=== PATIENT | female | born 1965 | race Caucasian/White ===

== ENCOUNTER 2019-04-29 09:34 | Emergency (ER) | payer SELFPAY ==
[2019-04-29] MEDS ORDERED: Ketorolac 60 MG/2 ML SDV IM ONE (10:22)
[2019-04-29] MEDS ORDERED: diphenhydrAMINE 50 MG Cap PO ONE (10:23)
[2019-04-29] MEDS ORDERED: Acetaminophen 325 MG Tab PO ONE (10:23)
[2019-04-29] MEDS ORDERED: Metoclopramide 10 MG/2 ML SDV IVPUSH ONE (10:23)
[2019-04-29] MEDS ORDERED: Lisinopril 10 MG Tab PO ONE (10:24)
[2019-04-29] MEDS ORDERED: Metoclopramide 5 MG Tab PO ONE (10:36)
--- NOTE | 2019-04-29 10:38 | EDM.PDOC ---
<Cindy Garcia - Last Filed: 04/30/19 12:27> ED HPI GENERAL MEDICAL PROBLEM - General Chief Complaint: General Stated Complaint: NAUSEA Time Seen by Provider: 04/29/19 10:20 Source of Information: Reports: Patient History Limitations: Reports: No Limitations - History of Present Illness INITIAL COMMENTS - FREE TEXT/NARRATIVE: Chrissy is a 53 year old female who presents to the ED this morning with c/o migraine and nausea. The migraine started last night. Pt reports it started towards the back of her head but by this morning it had to moved to the front part of her head. The nausea started early this morning as soon as she woke up. She is currently homeless and living in her car with her significant other so has no been able to take anything for her migraine as money is tight and she does not have insurance. She normally takes naproxen for her migraines along with lisinopril for hypertension but has not taken either in a few days. She reports phonophobia and photophobia. She denies having any vomiting or an aura prior to the onset of her migraine. She also wears eye glasses but has not been to see an physicist acoustics in years. Her significant other believes this also might be one source of her constant headaches. Onset: Gradual Onset Date: 04/28/19 Duration: Hour(s):, Constant Location: Reports: Head Quality: Reports: Dull, Throbbing Severity: Moderate Improves with: Reports: Medication Worsens with: Reports: Other (light and sound ) Associated Symptoms: Reports: Nausea/Vomiting Headache Pain Score (Numeric/FACES): 10 - Related Data Allergies Allergy/AdvReac Type Severity Reaction Status Date / Time Penicillins Allergy Cannot Verified 04/29/19 09:55 Remember propoxyphene Allergy Hives Verified 04/29/19 09:55 [From Darvocet-N] Sulfa (Sulfonamide Allergy Hives Verified 04/29/19 09:55 Antibiotics) sulfamethoxazole Allergy Hives Verified 04/29/19 09:55 [From Bactrim] trimethoprim [From Bactrim] Allergy Hives Verified 04/29/19 09:55 Home Meds: Home Meds Lisinopril [Prinivil] 10 mg PO DAILY 04/29/19 [History] Past Medical History HEENT History: Reports: Impaired Vision Cardiovascular History: Reports: Hypertension Respiratory History: Reports: Sleep Apnea Gastrointestinal History: Reports: GERD Musculoskeletal History: Reports: Back Pain, Chronic Neurological History: Reports: Migraines - Past Surgical History Female Surgical History: Reports: Hysterectomy Social & Family History - Tobacco Use Smoking Status *Q: Never Smoker - Caffeine Use Caffeine Use: Reports: Soda - Recreational Drug Use Recreational Drug Use: No ED ROS GENERAL - Review of Systems Review Of Systems: See Below Constitutional: Reports: No Symptoms HEENT: Reports: Glasses Respiratory: Reports: No Symptoms Cardiovascular: Reports: No Symptoms Endocrine: Reports: No Symptoms GI/Abdominal: Reports: No Symptoms : Reports: No Symptoms Musculoskeletal: Reports: No Symptoms Skin: Reports: No Symptoms Neurological: Reports: Headache. Denies: Confusion, Dizziness Psychiatric: Reports: No Symptoms Hematologic/Lymphatic: Reports: No Symptoms ED EXAM, GENERAL - Physical Exam Exam: See Below Exam Limited By: No Limitations General Appearance: Alert, WD/WN, No Apparent Distress Head: Atraumatic, Normocephalic Respiratory/Chest: No Respiratory Distress, Lungs Clear, Normal Breath Sounds, No Accessory Muscle Use, Chest Non-Tender Cardiovascular: Normal Peripheral Pulses, Regular Rate, Rhythm, No Edema, No Gallop, No JVD, No Murmur, No Rub GI/Abdominal: Normal Bowel Sounds, Soft, Non-Tender, No Organomegaly, No Distention, No Abnormal Bruit, No Mass Extremities: Normal Inspection, Non-Tender, No Pedal Edema, Normal Capillary Refill Neurological: Alert, Oriented, CN II-XII Intact, Normal Cognition, No Motor/ Sensory Deficits Psychiatric: Normal Affect, Normal Mood, Tearful Skin Exam: Warm, Dry, Intact, Normal Color, No Rash Lymphatic: No Adenopathy Course - Vital Signs Last Recorded V/S: Last Vital Signs Temp 98.5 F 04/29/19 09:52 Pulse 92 04/29/19 09:52 Resp 18 04/29/19 09:52 BP 141/84 H 04/29/19 10:51 Pulse Ox 100 04/29/19 09:52 - Orders/Labs/Meds Meds: Medications Discontinued Medications Generic Name Dose Route Start Last Admin Trade Name Freq PRN Reason Stop Dose Admin Acetaminophen 975 mg 04/29/19 10:23 04/29/19 10:51 Tylenol PO 04/29/19 10:24 975 mg NOW ONE Administration Diphenhydramine HCl 50 mg 04/29/19 10:23 04/29/19 10:50 Benadryl PO 04/29/19 10:24 50 mg ONETIME ONE Administration Ketorolac Tromethamine 60 mg 04/29/19 10:22 04/29/19 10:52 Toradol IM 04/29/19 10:23 60 mg ONETIME ONE Administration Lisinopril 10 mg 04/30/19 10:24 Prinivil PO 04/30/19 10:25 ONETIME ONE Lisinopril 10 mg 04/29/19 10:24 04/29/19 10:51 Prinivil PO 04/29/19 10:25 10 mg ONETIME ONE Administration Metoclopramide HCl 5 mg 04/29/19 10:36 04/29/19 10:51 Reglan PO 04/29/19 10:37 5 mg ONETIME ONE Administration Departure - Departure Disposition: Home, Self-Care 01 Clinical Impression: Headache - Discharge Information Instructions: Hypertension, [id number] Referrals: Emma Collins PA-C [Primary Care Provider] - Forms: ED Department Discharge Additional Instructions: He may take Tylenol if needed for further headache, you've been given sedating type medication will here in the ED, do not drive today. Avoid salty food. Follow-up clinic as needed. Return to ED as needed if symptoms worsening in any way. <Jed Song - Last Filed: 05/01/19 08:56> Course - Re-Assessments/Exams Free Text/Narrative Re-Assessment/Exam: 05/01/19 08:55 initial hx and exam was done by MARCELA Navarro student. I agree with hx and exam as documented. I have also interviewed and examined patient. Discharge instr. as documented. Departure - Departure Time of Disposition: 13:16 Condition: Fair
[2019-04-30] MEDS ORDERED: Lisinopril 10 MG Tab PO ONE (10:24)
== END 2019-04-29 13:21 | disposition home or self-care (01) ==
LOC: JD.ED 09:34
DX: R51 Headache (principal); I10 Essential (primary) hypertension; Z88.0 Allergy status to penicillin; Z88.1 Allergy status to other antibiotic agents; Z88.2 Allergy status to sulfonamides; Z88.5 Allergy status to narcotic agent; Z79.899 Other long term (current) drug therapy
CPT/HCPCS: 96372; 99284; A9270; J1885; 99283